=== PATIENT | male | born 1965 | race Two or more races ===

== ENCOUNTER 2019-12-11 17:52 | Emergency (ER) | payer BC ==
[~2019-12-11] VITALS: Ht 172.7 cm; Wt 86.2 kg
--- NOTE | 2019-12-11 18:04 | NUR ---
came in for constant headache x 3 weeks 10/10 pain scale, to ER bed 10, hooked to monitor, changed to hosp gown, warm blanket provided, patient aao X 4, breathing even and unlabored. awaiting MD sandoval
--- NOTE | 2019-12-11 18:22 | NUR ---
Dr José at bedside
--- NOTE | 2019-12-11 18:27 | NUR ---
PICKED UP BY REFERENCE LIBRARY ASSISTANT FOR CT SCAN
--- NOTE | 2019-12-11 20:19 | NUR ---
Patient discharged to home in stable condition. Written and verbal after care instructions given. Patient verbalizes understanding of instruction.
--- NOTE | 2019-12-11 20:19 | NUR ---
Patient given and explained to regarding medication.
[2019-12-11 20:21] VITALS: BP 122/76
== END 2019-12-11 20:22 | disposition home or self-care (01) ==
LOC: ER 17:52
DX: R51 Headache (principal)
CPT/HCPCS: 70450-TC

== ENCOUNTER 2019-12-22 16:41 | Emergency (ER) | payer BC ==
[~2019-12-22] VITALS: Ht 172.7 cm; Wt 83.9 kg
--- NOTE | 2019-12-22 16:41 | NUR ---
came in for headache and nape area x 1 month , to ER bed 10, hooked to monitor, vss, awaiting MD sandoval. kept comfortable
--- NOTE | 2019-12-22 17:00 | NUR ---
Dr Tejada at bedside
[2019-12-22] MEDS ORDERED: KETOROLAC TROMETHAMINE INJ 30 MG/ML VIAL ONE (17:15)
[2019-12-22] MEDS ORDERED: SUMATRIPTAN SUCCINATE 25 MG TABLET ONE (17:16)
[2019-12-22] MEDS ORDERED: CYCLOBENZAPRINE 10 MG TABLET ONE (17:16)
[2019-12-22] MEDS: CYCLOBENZAPRINE 10 MG TABLET PO ONE (17:36)
[2019-12-22] MEDS: KETOROLAC TROMETHAMINE INJ 30 MG/ML VIAL IM ONE (17:36)
[2019-12-22] MEDS: SUMATRIPTAN SUCCINATE 25 MG TABLET PO ONE (17:36)
[2019-12-22 18:31] VITALS: BP 124/71
--- NOTE | 2019-12-22 18:31 | NUR ---
Patient discharged to home in stable condition. Written and verbal after care instructions given. Patient verbalizes understanding of instruction.
== END 2019-12-22 18:31 | disposition home or self-care (01) ==
LOC: ER 16:42
DX: R51 Headache (principal); M54.81 Occipital neuralgia
CPT/HCPCS: 96372; 99283; J1885

== ENCOUNTER 2019-12-24 18:31 | Emergency (ER) | payer BC ==
[~2019-12-24] VITALS: Ht 172.7 cm; Wt 86.2 kg
[2019-12-24 18:38] VITALS: BP 138/79
[2019-12-24] MEDS ORDERED: KETOROLAC TROMETHAMINE INJ 60 MG/2 ML VIAL IM ONE ×2 (19:00→19:05)
== END 2019-12-24 19:12 | disposition home or self-care (01) ==
LOC: ER 18:31
DX: R51 Headache (principal)
CPT/HCPCS: 96372; 99283; J1885

== ENCOUNTER 2020-12-08 12:21 | Emergency (ER) | payer BC ==
[~2020-12-08] VITALS: Ht 172.7 cm; Wt 88.5 kg
[2020-12-08 13:13] VITALS: BP 125/81
[2020-12-08] MEDS ORDERED: LORA-259 PO (13:21)
--- NOTE | 2020-12-08 13:45 | NUR ---
55 yrs male c/o anxiety and genralized weekness awake and alert dineses si/hi looks comfortable no complain at this time
--- NOTE | 2020-12-08 14:14 | NUR ---
Patient discharged to home in stable condition. Written and verbal after care instructions given. Patient verbalizes understanding of instruction.
== END 2020-12-08 14:14 | disposition home or self-care (01) ==
LOC: ER 12:35
DX: F41.9 Anxiety disorder, unspecified (principal); Z79.899 Other long term (current) drug therapy

== ENCOUNTER 2021-06-09 19:13 | Emergency (ER) | payer BC, OTHER ==
[~2021-06-09] VITALS: Ht 172.7 cm; Wt 88.5 kg
[~2021-06-09 19:13] MED LIST: LORA-259 PO
[2021-06-09 19:31] VITALS: BP 135/87
--- NOTE | 2021-06-09 19:33 | NUR ---
AT BED SIDE
== END 2021-06-09 19:53 | disposition home or self-care (01) ==
LOC: ER 19:15
DX: L40.9 Psoriasis, unspecified (principal); T50.905A Adverse effect of unspecified drugs, medicaments and biological substances, initial encounter; Y92.89 Other specified places as the place of occurrence of the external cause

== ENCOUNTER 2021-09-28 02:11 | Emergency (ER) | payer BC ==
[~2021-09-28] VITALS: Ht 172.7 cm; Wt 86.2 kg
[2021-09-28 02:51] VITALS: BP 146/89
--- NOTE | 2021-09-28 03:02 | NUR ---
rapid flu collected and sent to lab
--- NOTE | 2021-09-28 04:00 | NUR ---
Patient discharged to home in stable condition. Written and verbal after care instructions given. Patient verbalizes understanding of instruction.
== END 2021-09-28 04:01 | disposition home or self-care (01) ==
LOC: ER 02:14
DX: J02.8 Acute pharyngitis due to other specified organisms (principal); B97.89 Other viral agents as the cause of diseases classified elsewhere; E78.5 Hyperlipidemia, unspecified; F41.9 Anxiety disorder, unspecified; Z60.2 Problems related to living alone; Z79.899 Other long term (current) drug therapy
CPT/HCPCS: 86403-TC; 87070-TC

== ENCOUNTER 2024-05-04 12:12 | Emergency (ER) | payer BC, MEDICAID, OTHER ==
[~2024-05-04] VITALS: Ht 172.7 cm; Wt 83.9 kg
[2024-05-04 12:36] VITALS: BP 137/81; TEMP 97.9; O2SAT 99
[2024-05-04] MEDS ORDERED: BENZ-13 PO (13:08)
[2024-05-04] MEDS ORDERED: IBUP-1955 PO (13:08)
== END 2024-05-04 13:19 | disposition home or self-care (01) ==
LOC: ER 12:18
DX: J06.9 Acute upper respiratory infection, unspecified (principal); B34.9 Viral infection, unspecified; E78.5 Hyperlipidemia, unspecified; F41.9 Anxiety disorder, unspecified; Z79.899 Other long term (current) drug therapy; Z60.2 Problems related to living alone